=== PATIENT | male | born 1955 | race Caucasian/White ===

== ENCOUNTER 2022-03-24 07:43 | Day surgery (SDC) | payer OTHER ==
[~2022-03-24] VITALS: Ht 180.3 cm; Wt 88.0 kg
[2022-03-24] MEDS ORDERED: FLOVENT HFA12 GM INH (08:06)
[2022-03-24] MEDS ORDERED: LOSARTAN-HCTZ1 EAC2 PO (08:06)
[2022-03-24] MEDS ORDERED: VENTOLIN HFA18 GM INH (08:07)
[2022-03-24] MEDS ORDERED: EUTHYROX150 MCG PO (08:07)
[2022-03-24] MEDS ORDERED: CLARITIN10 M2 PO (08:08)
--- NOTE | 2022-03-24 09:34 | NUR ---
03/24/22 0934 Carole Walker 0957 PT ARRIVED TO PACU ON 2L VIA NC, PT WAKES EASILY AND DENIES CONCERNS. PT EASILY FALLS BACK SLEEP. RESP EVEN AND UNLABORED.
--- NOTE | 2022-03-25 08:17 | OR ---
[facility] [address], [place] [address] Signed DATE OF OPERATION: 03/24/2022 SURGEON: Shamar Lizama MD PREOPERATIVE DIAGNOSES: 1. Internal and external hemorrhoids, status post PPH hemorrhoidal pexy and hemorrhoidectomy x1 in 2007. 2. Hyperplastic polyps at age 17 in 2007. 3. Maternal grandfather with possible colon cancer or prostate cancer. POSTOPERATIVE DIAGNOSES: 1. Yghgwme-ex-vhfvujvc bilateral external hemorrhoids. 2. A 5 mm polyp at 65 cm (left colon). 3. A 3 mm polyp at 18 cm (rectosigmoid junction). 4. A 6 mm polyp at 15 cm (rectum). 5. Frequent premature ventricular contractions. PROCEDURE: Colonoscopy with hot biopsy. ESTIMATED BLOOD LOSS: None. INDICATIONS: Sridevi is a 66-year-old gentleman asked to see me for followup screening colonoscopy. I helped Sridevi in 2007 at the age of 52. He was having hemorrhoids and rectal bleeding. He had a small 4 mm hyperplastic polyp along with the internal and external hemorrhoids. He did well with Versed and fentanyl. We had asked him to follow up in 10 years. He thinks maybe his maternal grandfather had colon cancer or possibly prostate cancer. We helped him in 2007 with the PPH, hemorrhoidal pexy and hemorrhoidectomy x1. He said that worked out very well. He has no lower GI complaints currently. He still drives over 1500 miles each month as he is the [employer]. He said he quit smoking around age 56. In the office, I gave him a pamphlet on colonoscopy. He recalls the nature of the test. There is risk including, but not limited to gas bloating, crampy abdominal pain, bleeding, perforation requiring surgery, and missed diagnosis. We also reviewed the need for IV conscious sedation. He had expressed understanding and wished to proceed. DESCRIPTION OF PROCEDURE: Sridevi was taken into our endoscopy suite and placed in the left lateral decubitus Electronically Signed By: SHAMAR LIZAMA MD 03/25/22 0817 PATIENT NAME: SRIDEVI NICKERSON OPERATIVE REPORT DATE OF : 59 REPORT #: [id number] PHYSICIAN: SHAMAR LIZAMA MD PCP: RADHA JONES REPORT IS CONFIDENTIAL AND NOT TO BE RELEASED WITHOUT AUTHORIZATION [facility] [address], [place] [address] Signed position. He was given a total of 4 mg of Versed and 100 mcg of fentanyl to cover the case. A digital rectal exam was performed. He does have a [id number]-ej-nxoykdmn bilateral external hemorrhoids. He has good sphincter tone. No masses. The adult colonoscope was introduced and advanced all around into the cecum under direct visualization of camera without difficulty. His prep was quite excellent. We could easily see the appendiceal orifice and ileocecal valve. The scope was then slowly withdrawn. We removed the above-mentioned polyps with the help of hot biopsy forceps. There was no diverticulosis. We did notice quite a few PVCs during this procedure. Once in the rectum, the scope had been retroflexed and really no evidence of any pathology above the anal canal. Very little in the way of any internal hemorrhoid tissue. After this, the gas suctioned out, the colonoscope removed. Sridevi tolerated the procedure quite well. RECOMMENDATIONS: I will see Sridevi back in my office in 7 to 14 days to review his results. Shamar Lizama MD ALB/MODL /[id number] cc: LUZ Galeas Patient Chart Shamar Lizama MD Copies: RADHA JONES ANDREW L MD ~ Electronically Signed By: SHAMAR LIZAMA MD 03/25/22 0817 PATIENT NAME: SRIDEVI NICKERSON OPERATIVE REPORT DATE OF : 59 REPORT #: [id number] PHYSICIAN: SHAMAR LIZAMA MD PCP: RADHA JONES REPORT IS CONFIDENTIAL AND NOT TO BE RELEASED WITHOUT AUTHORIZATION
== END 2022-03-24 10:09 | disposition home or self-care (01) ==
LOC: DS 07:43 → OPS 07:43 → DS 07:50 → OPS 09:00 → DS 09:00 → OPS 10:09
PROVIDERS: ATTEND Colon & Rectal Surgery
PROC: 0DBP8ZZ Excision of Rectum, Via Natural or Artificial Opening Endoscopic (ICD-10-PCS; 2022-03-24)
PROC: 0DBG8ZZ Excision of Left Large Intestine, Via Natural or Artificial Opening Endoscopic (ICD-10-PCS; principal; 2022-03-24 09:00)
DX: K64.4 Residual hemorrhoidal skin tags (principal); Z86.010 Personal history of colon polyps; K63.5 Polyp of colon; K62.1 Rectal polyp; Z12.11 Encounter for screening for malignant neoplasm of colon
CPT/HCPCS: 99153; G0500; J2250; J3010; J7121